=== PATIENT | male | born 1970 | race Caucasian/White ===

== ENCOUNTER 2018-01-21 14:32 | Inpatient (IN) | payer BC ==
[~2018-01-21] VITALS: Ht 172.7 cm; Wt 87.6 kg
[~2018-01-21 14:32] MED LIST: ADVAIR HFA120 INHALA IH; AMLODIPINE BESYL5 MG PO; Aspirin E.C. PO; B-6 PO; CATAPRES0.2 MG PO; CATAPRES0.3 MG PO; CHLORDIAZEPOXID25 MG PO; CLONIDINE HCL0.3 MG PO; DAILY VALUE1 EACH PO; FOLIC ACID1 MG PO; FOLVITE1 M1 PO; Hydrodiuril,Oretic,E PO; LIBRIUM25 MG PO; LISINOPRIL-HCT1 EACH PO; LISINOPRIL20 MG PO; LISINOPRIL30 MG PO; LISINOPRIL40 MG PO; LOPRESSOR50 MG PO; Librium PO; Lipitor PO; Lopressor PO; MULTIVITAMIN1 EAC2 PO; NICOTINE PATCH1 EAC2 TD; PRILOSEC20 MG PO; PriLOSEC PO; THERAGRAN1 TABLET PO; THIAMINE,VITAM100 MG PO; TOPROL XL50 MG PO; Tylenol Regular Stre PO; VENTOLIN HFA18 GM IH; VITAMIN B-6100 MG PO; ZESTRIL40 MG PO; Zestril,Prinivil PO
[2018-01-21 15:16] LABS: BASOPHIL (%) 0.9 % (0-1); BASOPHIL COUNT 0.1 K/uL (0-0.1); EOSINOPHIL COUNT 0.4 K/uL (0-0.3); HEMATOCRIT 37.4 % (38.0-50.0); IMMATURE GRANULOCYTE (%) 0.4 % (0.0-0.7); LYMPHOCYTE (%) 34.7 % (15-42); LYMPHOCYTE COUNT 2.4 K/uL (1.0-2.8); MCH 33.3 PG (29.0-34.0); MCHC 34.8 G/DL (30.0-36.0); MCV 95.9 FL (86-99); MONOCYTE (%) 11.2 % (3-12); MONOCYTE COUNT 0.8 K/uL (0-0.8); NEUTROPHIL (%) 46.8 % (45-76); NEUTROPHIL COUNT 3.2 K/uL (1.8-6.4); PLATELET COUNT 189 K/uL (156-360); RBC DIS.WIDTH-SD 42.3 % (39-53); WHITE BLOOD COUNT 6.9 K/uL (4.1-10.2)
[2018-01-21 15:31] LABS: ALBUMIN 4.2 g/dL (3.2-4.8); CHLORIDE 101 mEq/L (99-109); SODIUM 134 mEq/L (136-147)
[2018-01-21 15:34] LABS: GLUCOSE 117 mg/dL (70-99); TOTAL PROTEIN 7.7 g/dL (6.4-8.3)
[2018-01-21 15:36] LABS: TOTAL BILIRUBIN 0.3 mg/dL (0.0-1.0)
[2018-01-21 15:37] LABS: ALKALINE PHOSPHATASE 59 IU/L (3-129)
[2018-01-21 15:38] LABS: CREATININE 3.5 mg/dL (0.6-1.3); GFR ESTIMATE (CALCULATED) 20 mL/min/ (58.99-99999)
[2018-01-21 15:39] LABS: AST (GOT) 49 IU/L (2-34); UREA NITROGEN (BUN) 58 mg/dL (9-23)
[2018-01-21 15:41] LABS: ALT (GPT) 64 IU/L (3-49)
[2018-01-21 16:53] LABS: APPEARANCE CLEAR ((CLEAR)); BILIRUBIN NEGATIVE; BLOOD NEGATIVE; COLOR YELLOW ((YELLOW)); GLUCOSE (STRIP) NEGATIVE; KETONES NEGATIVE; LEUKOCYTES NEGATIVE; NITRITE NEGATIVE; PROTEIN (STRIP) 30; SPECIFIC GRAVITY 1.021 (1.000-1.030); UCUL ADDED? NO; UROBILINOGEN 0.2 MG/DL (0.2-1.0)
[2018-01-21] MEDS ORDERED: FOLIC ACID1 MG PO (17:38)
[2018-01-21] MEDS ORDERED: FUROSEMIDE20 MG PO (17:39)
[2018-01-21] MEDS ORDERED: LISINOPRIL40 MG PO (17:39)
[2018-01-21] MEDS ORDERED: ATARAX,VISTARIL25 MG PO (17:40)
[2018-01-21] MEDS ORDERED: PRILOSEC20 MG PO (17:42)
[2018-01-21] MEDS ORDERED: METOPROLOL TART50 MG PO (17:42)
[2018-01-21 18:20] VITALS: BP 111/60
[2018-01-21 19:16] VITALS: BP 113/66
[2018-01-21 23:02] VITALS: BP 131/65
[2018-01-22 03:43] VITALS: BP 148/81
[2018-01-22 06:09] LABS: HEMATOCRIT 34.8 % (38.0-50.0); HEMOGLOBIN 11.6 G/DL (12.5-16.6); MCHC 33.3 G/DL (30.0-36.0); MCV 99.1 FL (86-99); PLATELET COUNT 160 K/uL (156-360); RBC DIS.WIDTH-CV 12.2 % (11.8-14.6); RBC DIS.WIDTH-SD 44.5 % (39-53); RED BLOOD COUNT 3.51 M/uL (4.00-5.50); WHITE BLOOD COUNT 5.6 K/uL (4.1-10.2)
[2018-01-22 06:28] LABS: CHLORIDE 106 MEQ/L (99-109); GFR ESTIMATE (CALCULATED) 38 mL/min/ (58.99-99999); GLUCOSE 168 mg/dL (70-99); POTASSIUM 4.9 MEQ/L (3.7-5.4); SODIUM 139 MEQ/L (136-147); UREA NITROGEN (BUN) 48 mg/dL (9-23)
[2018-01-22 06:55] VITALS: BP 147/83
[2018-01-22 11:05] VITALS: BP 155/85
[2018-01-22 15:20] VITALS: BP 172/88
[2018-01-22 19:05] VITALS: BP 162/89
[2018-01-22 22:52] VITALS: BP 200/110
[2018-01-23 04:03] VITALS: BP 159/93
[2018-01-23 06:23] LABS: BASOPHIL COUNT 0.1 K/uL (0-0.1); EOSINOPHIL (%) 4.3 % (0-5); EOSINOPHIL COUNT 0.2 K/uL (0-0.3); HEMATOCRIT 36.8 % (38.0-50.0); HEMOGLOBIN 12.4 G/DL (12.5-16.6); IMMATURE GRANULOCYTE (%) 0.2 % (0.0-0.7); LYMPHOCYTE (%) 39.3 % (15-42); MCH 33.1 PG (29.0-34.0); MCHC 33.7 G/DL (30.0-36.0); MCV 98.1 FL (86-99); MONOCYTE (%) 9.6 % (3-12); MONOCYTE COUNT 0.5 K/uL (0-0.8); NEUTROPHIL (%) 45.6 % (45-76); NEUTROPHIL COUNT 2.3 K/uL (1.8-6.4); PLATELET COUNT 154 K/uL (156-360); RBC DIS.WIDTH-SD 43.8 % (39-53); RED BLOOD COUNT 3.75 M/uL (4.00-5.50); WHITE BLOOD COUNT 5.1 K/uL (4.1-10.2)
[2018-01-23 06:48] LABS: ALBUMIN 3.4 G/DL (3.2-4.8); ALKALINE PHOSPHATASE 42 IU/L (3-129); ALT (GPT) 36 IU/L (3-49); AST (GOT) 28 IU/L (2-34); CHLORIDE 111 MEQ/L (99-109); GFR ESTIMATE (CALCULATED) > 59 mL/min/ (58.99-99999); GLUCOSE 96 mg/dL (70-99); POTASSIUM 5.3 MEQ/L (3.7-5.4); SODIUM 138 MEQ/L (136-147); TOTAL BILIRUBIN 0.3 MG/DL (0.0-1.0); TOTAL PROTEIN 5.9 G/DL (6.4-8.3); UREA NITROGEN (BUN) 27 mg/dL (9-23)
[2018-01-23 06:49] LABS: CREATININE 1.1 MG/DL (0.6-1.3)
[2018-01-23 07:00] VITALS: BP 154/87
== END 2018-01-23 12:12 | disposition home or self-care (01) | DRG 683 ==
LOC: EME 14:32 → ENRESERV 16:38 → EDOF 16:38 → 5EAST 18:17
PROVIDERS: Emergency Medicine; Hospitalist; Student in an Organized Health Care Education/Training Program
DX: N17.9 Acute kidney failure, unspecified (principal); F10.20 Alcohol dependence, uncomplicated; E87.1 Hypo-osmolality and hyponatremia; E86.0 Dehydration; R14.0 Abdominal distension (gaseous); R60.0 Localized edema; I10 Essential (primary) hypertension; K21.9 Gastro-esophageal reflux disease without esophagitis; F17.210 Nicotine dependence, cigarettes, uncomplicated; Z86.73 Personal history of transient ischemic attack (TIA), and cerebral infarction without residual deficits
CPT/HCPCS: 76770; 80048; 80053; 81003; 83735; 84100; 85025; 85027; 94640; 94664; 94799; 99281; 99285; J1644; J7030